=== PATIENT | female | born 1935 | race Caucasian/White ===

== ENCOUNTER 2023-10-05 07:01 | Emergency (ER) | payer OTHER, SELFPAY ==
[2023-10-05 07:04] VITALS: BP 135/93
[2023-10-05 07:07] VITALS: BMI 24.6
[2023-10-05 07:08] VITALS: BP 135/93
--- NOTE | 2023-10-05 07:31 | ED.GENMED ---
History of Present Illness
General
Chief Complaint: Fall
Source: ambulance crew
Exam Limitations: dementia
Time Seen by Provider: 10/05/23 07:10
Nursing documentation reviewed up to this point in time: agreed with
Travel History
Have you had any contact with someone who has COVID-19?: Unable to Answer
Do you have any symptoms of coronavirus? Fever > 100 degrees, chills, cough, shortness of breath, sore throat, loss of taste or smell, muscle aches, or headache?: Unable to Answer
History of Present Illness
History of Present Illness:
88 yr old female brought by EMS. Pt is from [facility] on Hospice, found under the bed by staff.
Son, Mp Jon reports via the phone that pt is on Hospice and Arnav moe was supposed to call Hospice first. Son reports she has dementia/dysphagia. Hospice is with pt 5 d a week (home health aide. )nurse visits one week. Son does not
want any evaluation or testing and request that patient be sent back to facility.
Review of Systems
Review of Systems
Unable to obtain full review of systems at this time due to: dementia
Other source history: family
All Other Systems: ROS reviewed and negative except as documented in HPI and ROS
Constitutional: Denies fever
Respiratory: Reports no symptoms
Cardiac: Reports no symptoms
ABD/GI: Reports no symptoms
Musculoskeletal: Reports no symptoms
Skin: Reports no symptoms
Neurological: Reports no symptoms
Psychiatric: Reports no symptoms
Phy Exam
General Physical Exam
General Presentation: no apparent distress
General age: appears stated age
General Skin: warm and dry
General Habitus: elderly
General Mental: alert
General Hydration: dry mucous membranes
Cardiovascular Exam
Cardiovascular Exam: regular rate/rhythm, no murmur and normal peripheral pulses
Pulmonary Exam
Pulmonary Exam: lungs clear and no respiratory distress
Neurological Exam
Neurological Exam: other (pt sleeping will open eyes when her name is called, confused does not follow commands )
Musculoskeletal Exam
Musculoskeletal Exam: full ROM
Skin Exam
Skin Exam: normal color and warm/dry
Psychiatric Exam
Psychiatric Exam: normal mood/affect
Course
Orders/Labs/Results
Orders:
Orders
10/05/23 07:27
Complete Blood Count/With Diff Urgent
Comprehensive Metabolic Panel Urgent
Urinalysis Urgent
Date Specimen was Collected: 10/05/23
Time Specimen was Collected: :
Urine Microscopic Urgent
Date Specimen was Collected: 10/05/23
Time Specimen was Collected: :
Abnormal Lab Results
10/05/23
07:27
Absolute Neuts (auto) 8.4 H 10^3/uL
(1.4-6.5)
Absolute Lymphs (auto) 0.5 L 10^3/uL
(1.2-3.4)
Neutrophils % 87.1 H %
(42.2-75.2)
Lymphocytes % 5.6 L %
(20.5-51.1)
BUN 24 H mg/dl
(7-17)
Glucose 116 H mg/dl
(70-99)
Ur Leukocyte Esterase 1+ A
(Negative)
Urine WBC 30-40 A /HPF
(0-5)
Urine Bacteria Few A
(Negative)
10/05/23 07:27
10/05/23 07:27
Vital Signs
Initial and Last Documented VS:
Initial Vital Signs
BP
135/93
10/05/23 07:04
Last Documented Vital Signs
Pulse Resp BP Pulse Ox
74 18 163/64 95
10/05/23 10:00 10/05/23 10:00 10/05/23 10:00 10/05/23 10:00
MDM/Problems Addressed
MDM/Problems Addressed:
Patient is a 80-year-old female on hospice from [facility] who was sent for evaluation after patient was found on the floor. Family however does not wish to have any evaluation as she is on hospice and were unhappy that patient was sent here. No
labs were canceled however lab did run studies after they were canceled. Nothing further to do patient was sent back to [facility]. Pt sleeping arousable in no distress .
*Pulse Oximetry
Patient hypoxic: no
*Critical Care Note
Total Time (30-74mins, 75-104mins- exclusive of procedures): Not Applicable
ED Attending Note
-
Portions of this chart may have been created with voice recognition software.� Occasional wrong word or��sound alike� substitutions may have occurred due to the inherent limitations of voice recognition software.
Discharge Plan
Departure
Patient Disposition: Home (Routine Discharge)
Date of Disposition: 10/05/23
Time of Disposition: 08:20
Patient with high blood pressure during this ER visit?: Yes
Condition: Fair
Covid-19: Not Applicable
Discharge Problem:
Fall
Prescriptions:
No Action
lisinopril 40 mg Tablet
40 mg PO DAILY
nebivolol 2.5 mg tablet
2.5 mg PO DAILY
fluoxetine 20 mg Capsule
20 mg PO DAILY
risperidone [Risperdal] 0.5 mg Tablet
0.5 mg PO HS
Referrals:
Mayra Coley DO [Family Provider] -
Activity Restrictions/Additional Instructions:
Patient was sent to the ER today for evaluation of fall. Family was notified and does not want any evaluation/treatment
Interventions
Interventions:
*Risk Screen - Suicide Last Done: 10/05/23 07:11
*General Assessment Last Done: 10/05/23 07:08
*Neglect/Abuse Screening Last Done: 10/05/23 07:11
*ED COVID-19 Vaccine History Last Done: 10/05/23 07:08
*Nursing Disposition Last Done: 10/05/23 10:00
ED- Neurological Assessment Last Done: 10/05/23 07:14
ED-Skin Assessment Last Done: 10/05/23 07:14
Discharge Date and Time
Discharge Date/Time: 10/05/23 10:35
[2023-10-05 07:45] LABS: % Basophils 0.5 % (0-2); % Eosinophils 0.2 % (0-6); % Immature Granulocytes 0.3 % (0-0.5); % Lymphocytes 5.6 % (20.5-51.1); % Monocytes 6.3 % (1.7-9.3); % Neutrophils 87.1 % (42.2-75.2); Absolute Basophils 0.1 10^3/uL (0-0.2); Absolute Lymphocytes 0.5 10^3/uL (1.2-3.4); Absolute Monocytes 0.6 10^3/uL (0.1-0.6); Absolute Neutrophils 8.4 10^3/uL (1.4-6.5); Hematocrit 38.9 % (37.0-47.0); Hemoglobin 13.2 g/dL (12.0-16.0); Mean Corp Hgb Conc. 33.9 g/dL (33.0-37.0); Mean Corpuscular Hgb 30.8 pg (27.0-31.0); Mean Corpuscular Volume 90.7 fL (81.0-99.0); Mean Platelet Volume 9.7 fL (7.4-10.4); Nucleated Red Blood Cells % 0 %; Platelet Count 247 10^3/uL (130-400); Red Blood Cell Count 4.29 10^6/uL (4.20-5.40); Red Cell Dist. Width 13.3 % (11.5-14.5); White Blood Cell Count 9.6 10^3/uL (4.8-10.8)
[2023-10-05 07:49] LABS: Urine Albumin Trace (Neg - Trace); Urine Bilirubin Negative (Negative); Urine Color Yellow; Urine Glucose Negative (Negative); Urine Ketone Negative (Negative); Urine Leukocyte 1+ (Negative); Urine Nitrite Negative (Negative); Urine Occult Blood Negative (Negative); Urine Specific Gravity 1.015 (<1.030); Urine Urobilinogen Negative (Neg - 1+)
[2023-10-05 07:50] LABS: Urine Character Slightly Cloudy (Clear)
[2023-10-05 07:56] LABS: ALT (SGPT) 15 U/L (0-35); AST (SGOT) 29 U/L (14-36); Albumin 4.1 g/dl (3.5-5.0); Alkaline Phosphatase 70 U/L (38-126); Blood Urea Nitrogen 24 mg/dl (7-17); Calcium 9.3 mg/dl (8.4-10.2); Carbon Dioxide 29 mmol/L (22-30); Chloride 106 mmol/L (98-107); Estimated Creatinine Clearance 44 ml/min; Glucose 116 mg/dl (70-99); Potassium 4.6 mmol/L (3.5-5.1); Sodium 139 mmol/L (135-145); Total Bilirubin 0.7 mg/dl (0.2-1.3); eGFR > 60.00
[2023-10-05 08:00] VITALS: BP 151/61
[2023-10-05 08:09] LABS: Urine Amorphous Seen; Urine Mucus Few; Urine Red Blood Cell 0-2 /HPF (0-2)
[2023-10-05 08:11] LABS: Urine Bacteria Few (Negative); Urine White Cell 30-40 /HPF (0-5)
[2023-10-05 09:00] VITALS: BP 149/64
[2023-10-05 10:00] VITALS: BP 163/64
== END 2023-10-05 10:35 | disposition home or self-care (01) ==
LOC: EMR 07:01
PROVIDERS: Nurse Practitioner; EMERGENCY PHYSICIAN Emergency Medicine; FAMILY PHYSICIAN Student in an Organized Health Care Education/Training Program
DX: Z04.3 Encounter for examination and observation following other accident (principal); W19.XXXA Unspecified fall, initial encounter; F03.90 Unspecified dementia, unspecified severity, without behavioral disturbance, psychotic disturbance, mood disturbance, and anxiety
CPT/HCPCS: 99283; 80053; 81003; 81015; 85025

== ENCOUNTER 2024-06-15 01:57 | Emergency (ER) | payer OTHER, SELFPAY ==
[2024-06-15 02:19] VITALS: BP 179/92; BP 185/69
[2024-06-15 02:27] VITALS: BMI 37.4
--- NOTE | 2024-06-15 02:27 | ED.GENMED ---
History of Present Illness
<Suzette Wahl [facility] - Last Filed: 06/16/24 06:22>
General
Chief Complaint: Fall
Source: patient
Exam Limitations: dementia and other (BL hearing loss )
Time Seen by Provider: 06/15/24 02:08
Nursing documentation reviewed up to this point in time: agreed with
History of Present Illness
History of Present Illness:
Unable to obtain hx due to pt's clinical condition.
Phy Exam
<Suzette Wahl [facility] - Last Filed: 06/16/24 06:22>
General Physical Exam
General Presentation: no apparent distress
General age: appears stated age
General Habitus: frail
General Chronic Disability: demented
ENT Exam
Additional ENT: small (<2 cm) laceration on L forehead
Cardiovascular Exam
Cardiovascular Exam: regular rate/rhythm, no edema, no gallop and no murmur
Pulmonary Exam
Pulmonary Exam: lungs clear, no respiratory distress, no rales, no crackles and no wheezing
Neurological Exam
Neurological Exam: alert and speech normal
Course
<[facility] - Last Filed: 06/16/24 06:22>
Orders/Labs/Results
Orders:
Orders
06/15/24 02:23
CT Cervical Spine W/o Iv Contr Urgent
Comment:
Reason For Exam: fall
CT Head W/o Iv Contrast Urgent
Comment:
Reason For Exam: fall
06/15/24 03:28
CBC/With Diff [Complete Blood Count/With Diff] Urgent
06/15/24 04:15
Comprehensive Metabolic Panel Urgent
Comment: REDRAW
Abnormal Lab Results
06/15/24 06/15/24
03:28 04:15
WBC 11.3 H 10^3/uL
(4.8-10.8)
RBC 4.17 L 10^6/uL
(4.20-5.40)
Absolute Neuts (auto) 8.1 H 10^3/uL
(1.4-6.5)
Absolute Monos (auto) 0.8 H 10^3/uL
(0.1-0.6)
Lymphocytes % 19.2 L %
(20.5-51.1)
Chloride 109 H mmol/L
(98-107)
BUN 28 H mg/dl
(7-17)
Total Protein 6.1 L g/dl
(6.3-8.2)
06/15/24 03:28
06/15/24 04:15
Vital Signs
Initial and Last Documented VS:
Initial Vital Signs
Pulse Ox
98
06/15/24 02:14
Last Documented Vital Signs
Temp Pulse Resp BP Pulse Ox
98.0 F 58 17 192/79 97
06/15/24 02:19 06/15/24 02:19 06/15/24 02:19 06/15/24 03:27 06/15/24 03:30
Chrislt;Bora Hernandez, DO - Last Filed: 06/15/24 05:27>
Orders/Labs/Results
Orders:
Orders
06/15/24 02:23
CT Cervical Spine W/o Iv Contr Urgent
Comment:
Reason For Exam: fall
CT Head W/o Iv Contrast Urgent
Comment:
Reason For Exam: fall
06/15/24 03:28
CBC/With Diff [Complete Blood Count/With Diff] Urgent
06/15/24 04:15
Comprehensive Metabolic Panel Urgent
Comment: REDRAW
Abnormal Lab Results
10/18/24 10/18/24
03:28 04:15
WBC 11.3 H 10^3/uL
(4.8-10.8)
RBC 4.17 L 10^6/uL
(4.20-5.40)
Absolute Neuts (auto) 8.1 H 10^3/uL
(1.4-6.5)
Absolute Monos (auto) 0.8 H 10^3/uL
(0.1-0.6)
Lymphocytes % 19.2 L %
(20.5-51.1)
Chloride 109 H mmol/L
(98-107)
BUN 28 H mg/dl
(7-17)
Total Protein 6.1 L g/dl
(6.3-8.2)
06/15/24 03:28
06/15/24 04:15
Vital Signs
Initial and Last Documented VS:
Initial Vital Signs
Pulse Ox
98
06/15/24 02:14
Last Documented Vital Signs
Temp Pulse Resp BP Pulse Ox
98.0 F 58 17 192/79 97
06/15/24 02:19 06/15/24 02:19 06/15/24 02:19 06/15/24 03:27 06/15/24 03:30
<BUCK Chacon - Last Filed: 06/16/24 06:22>
MDM/Problems Addressed
Differential Diagnosis Includes:
superficial skin laceration, concussion, subdural hematoma
<BUCK Chacon - Last Filed: 06/16/24 06:22>
*Critical Care Note
Total Time (30-74mins, 75-104mins- exclusive of procedures): Not Applicable
ED Attending Note
<BUCK Chacon - Last Filed: 06/16/24 06:22>
-
Portions of this chart may have been created with voice recognition software.� Occasional wrong word or��sound alike� substitutions may have occurred due to the inherent limitations of voice recognition software.
<Bora Hernandez, DO - Last Filed: 06/15/24 05:27>
ED Attending Note
Patient seen and examined by attending physician: Yes
I performed the substantive portion of visit, reviewed & personally made and approve the management plan that is documented in note by myself or AAKASH.: Yes
ED Attending Note:
This a pleasantly demented 88-year-old female from [facility] presents to the emergency department after unwitnessed fall. Patient has no complaints per EMS. Per nursing staff to EMS, patient is at baseline. Patient was actually found sitting in
the doorway of her room. There is a small abrasion on the left side of her head. Patient was seen in conjunction with the PA student. I have reviewed and agree with the history and treatment plan presented. On my independent physical exam,
patient is awake, responsive to verbal stimuli. Apparently at baseline. Heart is regular rate rhythm. Lungs are clear to auscultation bilaterally without wheezes rales or rhonchi present. Hips are stable without tenderness to palpation. Moves
all 4 extremities. Small very superficial abrasion approximate 1 cm x 1 cm left temporal region of her forehead. Not tender to palpation.
Discharge Plan
Departure
Patient Disposition: Half-Way/SNF
Date of Disposition: 06/15/24
Time of Disposition: 05:26
Discharge Problem:
Fall, Abrasion, Alzheimer's dementia
Instructions: Head Injury in Adults (DC), Preventing falls in adults, Skin Abrasions (DC), BLOOD PRESSURE
Prescriptions:
No Action
lisinopril 40 mg Tablet
40 mg PO DAILY
nebivolol 2.5 mg tablet
2.5 mg PO DAILY
fluoxetine 20 mg Capsule
20 mg PO DAILY
risperidone [Risperdal] 0.5 mg Tablet
0.5 mg PO HS
Referrals:
Reji Salazar MD [Family Provider] -
Activity Restrictions/Additional Instructions:
It was a pleasure meeting you and taking part in your care. We hope for your continued healing and wellness.
Please read discharge instructions in their entirety. However, they are for general education and may not describe your exact diagnosis at discharge. Information on your ER visit and medical conditions were discussed with you along with appropriate
follow up information...
If indicated, please take your medications as instructed and indicated on discharge paperwork.
Please schedule a follow up appointment as directed. Call to schedule an appointment
Please return to the emergency department with ANY change in, persisting, or worsening of symptoms. If any of your symptoms do not improve, or persist, or become more severe within 6-12 hours, please return to the emergency department for further
care.
Please return to the emergency department if you develop a headache, neck pain/stiffness, fever greater than 100.4F, chest pain, shortness of breath, persistent nausea, vomiting, slurred speech, difficulty walking, numbness/tingling, weakness, signs
of infection or any other symptoms that are worrisome to you.
If you have any questions or concerns please do not hesitate to call the Hospital at or E-mail me directly at [email or web address]
Interventions
Interventions:
*Risk Screen - Suicide Last Done: 06/15/24 02:19
*General Assessment Last Done: 06/15/24 02:19
*Neglect/Abuse Screening Last Done: 06/15/24 02:19
ED- Fall Risk Assessment Last Done: 06/15/24 02:27
*ED COVID-19 Vaccine History Last Done: 06/15/24 02:27
*Nursing Disposition Last Done: 06/15/24 06:35
ED-Musculoskeletal Assessment Last Done: 06/15/24 02:27
ED- Neurological Assessment Last Done: 06/15/24 02:27
ED-Skin Assessment Last Done: 06/15/24 02:27
Discharge Date and Time
Discharge Date/Time: 06/15/24 06:35
Print Language: BERMUDIAN
[2024-06-15 03:27] VITALS: BP 192/79
[2024-06-15 04:03] LABS: % Basophils 0.5 % (0-2); % Immature Granulocytes 0.4 % (0-0.5); % Lymphocytes 19.2 % (20.5-51.1); % Monocytes 6.8 % (1.7-9.3); % Neutrophils 72.1 % (42.2-75.2); Absolute Basophils 0.1 10^3/uL (0-0.2); Absolute Eosinophils 0.1 10^3/uL (0-0.7); Absolute Lymphocytes 2.2 10^3/uL (1.2-3.4); Absolute Monocytes 0.8 10^3/uL (0.1-0.6); Absolute Neutrophils 8.1 10^3/uL (1.4-6.5); Hemoglobin 12.4 g/dL (12.0-16.0); Mean Corp Hgb Conc. 33.5 g/dL (33.0-37.0); Mean Corpuscular Hgb 29.7 pg (27.0-31.0); Mean Corpuscular Volume 88.7 fL (81.0-99.0); Mean Platelet Volume 9.7 fL (7.4-10.4); Nucleated Red Blood Cells % 0 %; Platelet Count 246 10^3/uL (130-400); Red Blood Cell Count 4.17 10^6/uL (4.20-5.40); Red Cell Dist. Width 13.7 % (11.5-14.5); White Blood Cell Count 11.3 10^3/uL (4.8-10.8)
[2024-06-15 04:58] LABS: ALT (SGPT) 14 U/L (0-35); AST (SGOT) 18 U/L (14-36); Albumin 3.5 g/dl (3.5-5.0); Alkaline Phosphatase 54 U/L (38-126); Blood Urea Nitrogen 28 mg/dl (7-17); Calcium 8.8 mg/dl (8.4-10.2); Carbon Dioxide 26 mmol/L (22-30); Chloride 109 mmol/L (98-107); Estimated Creatinine Clearance 30 ml/min; Glucose 96 mg/dl (70-99); Potassium 3.7 mmol/L (3.5-5.1); Sodium 145 mmol/L (135-145); Total Bilirubin 0.4 mg/dl (0.2-1.3); Total Protein 6.1 g/dl (6.3-8.2); eGFR > 60.00
== END 2024-06-15 06:35 ==
LOC: EMR 01:57
PROVIDERS: EMERGENCY PHYSICIAN Student in an Organized Health Care Education/Training Program; FAMILY PHYSICIAN Family Medicine
DX: S01.81XA Laceration without foreign body of other part of head, initial encounter (principal); W19.XXXA Unspecified fall, initial encounter; F02.80 Dementia in other diseases classified elsewhere, unspecified severity, without behavioral disturbance, psychotic disturbance, mood disturbance, and anxiety; G30.9 Alzheimer's disease, unspecified
CPT/HCPCS: 99284; 70450; 72125; 80053; 85025

== ENCOUNTER 2024-06-26 18:35 | Inpatient (IN) | payer OTHER, SELFPAY ==
[2024-06-26 12:36] VITALS: BP 162/60
--- NOTE | 2024-06-26 12:41 | ED.MUSCINJ ---
HPI-Injury
General
Chief Complaint: Fall
Source: patient and ambulance crew
Exam Limitations: dementia
Time Seen by Provider: 06/26/24 12:35
Nursing documentation reviewed up to this point in time: agreed with
History of Present Illness-Injury
Initial Injury comments:
88-year-old female from [facility] Hx HTN, Altzheimer's dementia, HLD, Hospice Care, was found sitting in her room on the floor she is demented and is a poor historian.
Son Mp called and said patient was on hospice from February 2000 23 to 2 weeks ago as she no longer met the criteria, and she has fallen twice since then. She had been eating and drinking well, ambulating he states 'she is a tough old bird.'
He confirms that she is DNR.
He states the staff was concerned today not because of the fall but because when they helped her up she could not walk which is unusual.
Past History
Past History
ED Past Medical History: HTN, Hypercholesterolemia and Psychiatric (dementia)
ED Past Surgical History: Gynecological
Social History
Tobacco: Non-smoker
Alcohol: None
Personal:
Review of Systems
Review of Systems
Allergies reviewed?: Yes
Unable to obtain full review of systems at this time due to: dementia
All Other Systems: ROS reviewed and negative except as documented in HPI and ROS
Constitutional: Denies fever
ABD/GI: Denies vomiting or diarrhea
Musculoskeletal: Reports other (pain left hip with exam)
Skin: Reports no symptoms
Phy Exam
Physical Exam
Physical Exam:
GENERAL: No acute distress. Alert, disoriented.
CONSTITUTIONAL: Afebrile.
EYES: PERRL, conjunctivae normal
Neck: Supple
ENMT: moist mucus membranes, [place]
RESPIRATORY: Regular respirations, nonlabored, lungs clear.
CARDIOVASCULAR: Regular rate and rhythm, no murmurs, no rubs.
GI: Soft, nontender, normal BS
MUSCULOSKELETAL: Moves with ease. Well perfused. No edema.
SKIN: Warm, dry, pale
PSYCH: Normal mood and affect. Well kept, dementia
NEUROLOGIC: Awake, alert and demented. No focal neurological deficits
Injury Course
Orders/Labs/Results
Orders:
Orders
06/26/24 12:46
Hip, Left 2-3 Views [CR Hip - LT w/wo Pel 2-3 Vw*] Urgent
Comment:
Reason For Exam: pain after fall
Include a pelvis x-ray?: Yes
06/26/24 12:47
Straight cath- Treatment ONCE
06/26/24 13:11
Complete Blood Count/With Diff Urgent
Comprehensive Metabolic Panel Urgent
Urinalysis Reflex To Culture Urgent
Date Specimen was Collected: 06/26/24
Time Specimen was Collected: 12:50
Urine Microscopic Reflex Cult Urgent
Urine Culture Urgent
BEULAH Source: U
Specimen Description:
Date Specimen was Collected: 06/26/24
Time Specimen was Collected: 12:50
06/26/24 14:10
Acetaminophen [Tylenol] 1,000 mg PO NOW STA
06/26/24 14:35
Fosfomycin [Monurol] 3 gm PO ONCE ONE
06/26/24 14:36
Lorazepam [Ativan] 0.5 mg IV NOW STA
06/26/24 16:16
Case Management Consult ONCE
Case Management Consult: Discharge Planning
Requested By:: PHYSICIAN
Hosp[phone]
Comment: Pt has nondisplaced fx left hip from fall. Son does not want surgery. He wants her back on
Hospice. She was on Hospice from 02/2023 until she no longer qualified and was DC'd 2 weeks ago
and has had 2 falls since. She is severely demented and even found standing in hallway here
on her fractured hip! Son wants her back in NH on Hospice. She will need Ativan and pain
management. Thanks
06/26/24 17:08
Case Management Consult ONCE
Case Management Consult: Discharge Planning
Comment: Hospice evaluate and Treat
06/26/24 17:46
Risperidone Disintegrating [Risperdal M-Tab (Orally Disintegrating)] 0.5 mg PO NOW STA
06/26/24 17:47
Admit/Transfer Patient As Directed
Co-Sign Provider:
Level of Care: Inpatient admission
Assign to:: Medical/Surgical
Physician / Group: Colin Hair
Diagnosis: UTI
Reason for Hospitalization: UTI
Expected length of stay greater than two midnights?: Yes
ELOS- Estimated Length of Stay in days: 3
I certify the patient meets the requirements for IP care: Yes
PRN Pain Medication Management As Directed
May give lesser potent ordered pain med per pt: Yes
preference::
Protocol:: Medication orders for pain may be administered in a
manner that supports deferring to patient preference
when the pt is:
- Requesting an ordered lesser potent pain medication.
Least to most potent pain medications are defined
as: acetaminophen < NSAID < tramadol < opioids
(morphine, oxycodone, hydromorphone).
- Requesting a lesser dose of the same medication IF
ORDERED.
- Requesting a less intrusive route of administration
if both routes are prescribed by the provider (PO <
IV).
06/26/24 17:48
Code Status As Directed
Resuscitation Status: Do not resuscitate
Based on pt advanced directive or healthcare POA form: Yes
DNR Bracelet Application ONCE
Abnormal Lab Results
06/26/24
13:11
RBC 3.85 L 10^6/uL
(4.20-5.40)
Hgb 11.4 L g/dL
(12.0-16.0)
Hct 35.1 L %
(37.0-47.0)
MCHC 32.5 L g/dL
(33.0-37.0)
Immature Gran % 0.6 H %
(0-0.5)
BUN 25 H mg/dl
(7-17)
Urine Nitrite (Reflex) Positive A
(Negative)
Leukocyte Esterase Rfl 2+ A
(Negative)
Urine WBC (Reflex) 70-80 A /HPF
(0-5)
Urine Bacteria (Reflex) Many A
(Negative)
06/26/24 13:11
06/26/24 13:11
MDM/Problems Addressed
MDM/Problems Addressed:
88-year-old female from [facility] Hx HTN, Altzheimer's dementia, HLD, Hospice Care, was found sitting in her room on the floor she is demented and is a poor historian.
Son Mp called and said patient was on hospice from February 2000 23 to 2 weeks ago as she no longer met the criteria, and she has fallen twice since then. She had been eating and drinking well, ambulating he states 'she is a tough old bird.'
He confirms that she is DNR. He is fine with her having blood work, U/A and xrays.
He states the staff was concerned today not because of the fall but because when they helped her up she could not walk which is unusual.
Pt persistently winces and says 'ouch' and 'hurts' with manipulation of left hip
1:30 p.m.
CBC with no clinically significant abnormality
CMP with no clinically significant abnormality
X-ray left hip and pelvis radiology report read: IMPRESSION:
Findings suspicious for fracture, neck, proximal left femur.
2:30 p.m.
Pt agitated constantly crying out, unable to calm her, given Tylenol for pain. Trying to get OOB then saying 'I'm in pain.' She will not follow command to stay in bed.
Ativan ordered.
Son informed of fracture. He does NOT want surgery. He requests pt be put back on Hospice. He is ok with treating the UTI. He is contacting Marsha at [facility] who knows pt and will get back to me
4:20 p.m.
Son unable to contact anyone in Hospice
Case management consulted.
5:10 p.m.
Spoke with Mark Jaquez ([phone] ) head liaison from [facility]. He states the patient cannot go back to [facility] until he makes appropriate arrangements and that will not be until the morning.
Kourtney from case management is involved and will follow
Son updated
Hospitalist notified of admission.
*Critical Care Note
Total Time (30-74mins, 75-104mins- exclusive of procedures): Not Applicable
ED Attending Note
-
Portions of this chart may have been created with voice recognition software.� Occasional wrong word or��sound alike� substitutions may have occurred due to the inherent limitations of voice recognition software.
Discharge Plan
Departure
Patient Disposition: Admit
Date of Disposition: 06/26/24
Time of Disposition: 17:09
Admit to: Med/Surg
Presentation/result/management discussed w/ accepting MD/DO: Hospitalist
Condition: Fair
Discharge Problem:
Alzheimer's dementia, Fracture of left hip
Prescriptions:
No Action
sennosides [senna] 8.6 mg Tablet
17.2 mg PO HS
acetaminophen 325 mg Tablet
650 mg PO Q4HPRN PRN (Reason: moderate pain)
acetaminophen 325 mg Tablet
650 mg PO Q6HPRN PRN (Reason: mild pain)
polyethylene glycol 3350 [Miralax] 17 gram Powder In Packet
17 g PO DAILYPRN PRN (Reason: constipation)
amlodipine 2.5 mg Tablet
2.5 mg PO DAILY
melatonin 3 mg Tablet
3 mg PO HS
lorazepam 0.5 mg Tablet
0.5 mg PO BIDPRN PRN (Reason: anxiety)
magnesium hydroxide [Milk of Magnesia] 400 mg/5 mL Suspension
30 ml PO HSPRN PRN (Reason: if no bm x 3 days)
methimazole 5 mg Tablet
5 mg PO DAILY@0630
nystatin [Nystop] 100,000 unit/gram Powder
1 applic TOPICAL BID@0900,1700
Patient Comments:
apply to bilateral breasts
paroxetine HCl 40 mg Tablet
40 mg PO DAILY
ibandronate 150 mg Tablet
150 mg PO QMONTH
cholecalciferol (vitamin D3) 25 mcg (1,000 unit) Tablet
25 mcg PO DAILY
potassium chloride 20 mEq Tablet Extended Release
20 meq PO DAILY
Referrals:
Reji Salazar MD [Family Provider] -
Interventions
Interventions:
*Risk Screen - Suicide Last Done: 06/26/24 12:36
*General Assessment Last Done: 06/26/24 12:36
*Neglect/Abuse Screening Last Done: 06/26/24 12:36
ED-Musculoskeletal Assessment Last Done: 06/26/24 13:23
ED- Neurological Assessment Last Done: 06/26/24 13:23
ED-Skin Assessment Last Done: 06/26/24 13:23
Discharge Date and Time
Print Language: FRENCH
[2024-06-26 13:24] LABS: % Basophils 0.9 % (0-2); % Eosinophils 1.5 % (0-6); % Immature Granulocytes 0.6 % (0-0.5); % Lymphocytes 28.9 % (20.5-51.1); % Monocytes 8.5 % (1.7-9.3); % Neutrophils 59.6 % (42.2-75.2); Absolute Basophils 0.1 10^3/uL (0-0.2); Absolute Eosinophils 0.1 10^3/uL (0-0.7); Absolute Lymphocytes 1.9 10^3/uL (1.2-3.4); Absolute Monocytes 0.6 10^3/uL (0.1-0.6); Absolute Neutrophils 3.9 10^3/uL (1.4-6.5); Hematocrit 35.1 % (37.0-47.0); Hemoglobin 11.4 g/dL (12.0-16.0); Mean Corp Hgb Conc. 32.5 g/dL (33.0-37.0); Mean Corpuscular Hgb 29.6 pg (27.0-31.0); Mean Corpuscular Volume 91.2 fL (81.0-99.0); Mean Platelet Volume 9.8 fL (7.4-10.4); Nucleated Red Blood Cells % 0 %; Platelet Count 233 10^3/uL (130-400); Red Blood Cell Count 3.85 10^6/uL (4.20-5.40); Red Cell Dist. Width 13.6 % (11.5-14.5); White Blood Cell Count 6.6 10^3/uL (4.8-10.8)
[2024-06-26 13:34] LABS: Urine Albumin Trace (Neg - Trace); Urine Bilirubin Negative (Negative); Urine Character Slightly Cloudy (Clear); Urine Color Yellow; Urine Glucose Negative (Negative); Urine Ketone Negative (Negative); Urine Leukocyte 2+ (Negative); Urine Nitrite Positive (Negative); Urine Occult Blood Negative (Negative); Urine Urobilinogen Negative (Neg - 1+)
[2024-06-26 13:38] LABS: ALT (SGPT) 18 U/L (0-35); AST (SGOT) 23 U/L (14-36); Albumin 3.9 g/dl (3.5-5.0); Alkaline Phosphatase 55 U/L (38-126); Blood Urea Nitrogen 25 mg/dl (7-17); Calcium 9.2 mg/dl (8.4-10.2); Carbon Dioxide 30 mmol/L (22-30); Chloride 103 mmol/L (98-107); Glucose 93 mg/dl (70-99); Potassium 4.5 mmol/L (3.5-5.1); Sodium 144 mmol/L (135-145); Total Bilirubin 0.2 mg/dl (0.2-1.3); Total Protein 6.5 g/dl (6.3-8.2); eGFR > 60.00
[2024-06-26 14:08] LABS: Urine Bacteria Many (Negative); Urine Red Blood Cell 0-2 /HPF (0-2); Urine White Cell 70-80 /HPF (0-5)
[2024-06-26] MEDS: TYLENOL 1000 MG PO (14:13)
[2024-06-26] MEDS: ATIVAN 0.5 MG IV ×2 (14:40→21:13)
[2024-06-26] MEDS: MONUROL 3 GM PO (14:40)
[2024-06-26 15:06] VITALS: BP 148/130
--- NOTE | 2024-06-26 16:39 | CM ---
Addendum entered by Kourtney Orr RN 06/26/24 17:20:
BRIAN spoke with ED [employer]VEYOR LOADER who stated that Asael from [facility] spoke with her. He stated that they are unable to sign her on to hospice tonight and she will have to be evaluated tomorrow for hospice placement.
BRIAN spoke with KJ Copeland at [facility] and she stated she is concerned that patient will attempt to get up from the bed given her history of dementia and previous attempts. CM will speak with [facility] and [facility] hospice tomorrow to coordinate
discharge.
Original Note:
BRIAN spoke with Dinorah at [facility]. She is concerned that patient will be too agitated for them to provide care for her. Nursing will update this CM if they can accept back.
[2024-06-26 16:46] VITALS: BP 146/69
--- NOTE | 2024-06-26 17:23 | HPS.HSE ---
Family Physician
-
Family Physician: Reji Salazar
Chief Complaint
-
Fall
History of Present Illness
Patient is a 8-year-old female with past medical history significant for HTN, and dementia. Patient presented to [place] ED following a suspected fall at [facility] where staff reported patient was found sitting on floor and when they got her up
and she was unable to walk like normal. Patient AAOx1, not interactive with assessment. Patient son reported to ED staff that patient was recently discharged from hospice services for not meeting criteria, and wishes for a hospice consult, he is ok
with antibiotics to treat UTI but does not want surgical intervention for fracture.
Medical History
Past Medical History
Past Medical History: Reports Other
Additional Past Medical History:
Hypertension
Alzheimer's
Dementia
Past Surgical History: Reports None
Social History
Unable to obtain full social history at this time due to: Dementia
Family History
Family History: Not pertinent
Allergies / Home Medications
Allergies reflects when Allergies were last updated in [employer].
Home Medications with original date entered in [employer]
Allergy/Medication List:
Allergies
Allergy/AdvReac Type Severity Reaction Status Date / Time
No Known Allergies Allergy Verified 06/26/24 12:35
Home Medications
acetaminophen 325 mg tablet 650 mg PO Q4HPRN PRN moderate pain 06/26/24
acetaminophen 325 mg tablet 650 mg PO Q6HPRN PRN mild pain 06/26/24
amlodipine 2.5 mg tablet 2.5 mg PO DAILY 06/26/24
cholecalciferol (vitamin D3) 25 mcg (1,000 unit) tablet 25 mcg PO DAILY 06/26/24
ibandronate 150 mg tablet 150 mg PO QMONTH 06/26/24
lorazepam 0.5 mg tablet 0.5 mg PO BIDPRN PRN anxiety 06/26/24
magnesium hydroxide 400 mg/5 mL oral suspension (Milk of Magnesia) 30 ml PO HSPRN PRN if no bm x 3 days 06/26/24
melatonin 3 mg tablet 3 mg PO HS 06/26/24
methimazole 5 mg tablet 5 mg PO DAILY@0630 06/26/24
nystatin 100,000 unit/gram topical powder (Nystop) 1 applic topical BID@0900,1700 06/26/24
paroxetine HCl 40 mg tablet 40 mg PO DAILY 06/26/24
polyethylene glycol 3350 17 gram oral powder packet (Miralax) 17 g PO DAILYPRN PRN constipation 06/26/24
potassium chloride 20 mEq tablet,extended release 20 meq PO DAILY 06/26/24
sennosides 8.6 mg tablet (senna) 17.2 mg PO HS 06/26/24
Review of Systems
-
Unable to obtain full review of systems at this time due to: Dementia
History Source: Patient
Physical Exam
Vital Signs
Vital Signs
Temp Pulse Resp BP Pulse Ox
97.8 F 68 18 146/69 91
06/26/24 12:36 06/26/24 16:46 06/26/24 16:46 06/26/24 16:46 06/26/24 16:46
Physical Exam
General: Well Developed, No Apparent Distress and Comfortable
HEENT: NormoCephalic, Moist mucous membranes, Atraumatic, [place] Conjunctivae, Nose Appears Normal and Ears Appear Normal
Respiratory: Clear and Non Labored Respirations; No Wheezes, Rales, Rhonchi or Crackles
Cardiac: S1/S2 and Regular Rhythm; No Murmur, Rub or Gallop
Breast: Deferred by me
GI: Soft, Non Tender, Non Distended and Normal Bowel Sounds; No Organomegaly
Rectal: Deferred by Provider
Genito-urinary: Deferred by me
Musculoskeletal: No Clubbing, No Cyanosis and No Edema
Skin: Warm, Dry and IV/Catheter Site; No Rash
Neuro: Awake, Nonfocal/grossly intact and Other (oriented to self only)
Hematologic/Lymphatic: No Lymphadenopathy
Psych: Calm
Laboratory Results
-
06/26/24 13:11
06/26/24 13:11
Laboratory Results
Total Bilirubin 0.2 mg/dl (0.2-1.3) 06/26/24 13:11
AST 23 U/L (14-36) 06/26/24 13:11
ALT 18 U/L (0-35) 06/26/24 13:11
Alkaline Phosphatase 55 U/L (38-126) 06/26/24 13:11
Data Reviewed
-
Lab Data: Labs Reviewed by me
Impression/Plan
-
IMPRESSION/PLAN:
#Abnormal UA suspect UTI
- UA suggestive of UTI, AOC DIRECTOR INTELLIGENCE OFFICER pending
- Admit to med/surg
- IV Ceftriaxone
- Consult case management for hospice
#Left hip fracture
#Ambulatory dysfunction
- pain management
- Consult case management for hospice
#Alzheimer's Disease/Dementia
- continue paroxetine
- SL risperidone PRN
#Hypertension
- continue amlodipine
DNR
DVT Px: SQ Lovenox
--- NOTE | 2024-06-26 17:40 | W.PN.UPDATE ---
Update Note
Progress Note Update
I could not get any information from the patient as HX dementia
Information gathered by chart review and speaking with the ER staff
This note serves as an addendum to the H&P by relations mgr AAKASH Cainjay GrahamGlenfield
HPI
88-year-old female from [facility] Hx HTN, Altzheimer's dementia, HLD, Hospice Care, was found sitting in her room on the floor she is demented and is a poor historian.
Son Mp called and said patient was on hospice from February 2000 23 to 2 weeks ago as she no longer met the criteria, and she has fallen twice since then. She had been eating and drinking well, ambulating he states 'she is a tough old bird.'
He confirms that she is DNR.
He states the staff was concerned today not because of the fall but because when they helped her up she could not walk which is unusual.
Reviewed VS: unremarkable
PE
Gen:
General: alert but not interactive
HEENT: Normo Cephalic and Anicteric
Respiratory: symmetric AE, CTA
Cardiac: S1/S2 and Regular Rhythm
GI: Soft
Neuro: confused
Hematologic/Lymphatic:
Psych: Calm s/p ativan
Data
nl WCC
Hgb 11.4
BUN 25
nl Cr, nl eGFR
Abn UA suggestive of significant pyuria nd UTI
Lt Hip XR: suspicious for Lt proximal NoF Fx .
Last hospitalist admission: DATE OF ADMISSION: 03/20/2023 - DATE OF DISCHARGE: 03/23/2023
DISCHARGE DIAGNOSES:
1. Acute hypoxic respiratory insufficiency.
2. Aspiration pneumonitis.
3. Severe dysphagia.
4. Alzheimer's dementia.
ASSESSMENT & PLAN
Abnormal UA suspect UTI
HX Morganella POS UCx resistant to cefazolin. Sensitive to CFTX nd LVQ
- f/u UCx
- IV CFTX for now
Fall complicated with proximal Lt NoF Fx
Son declined hip surgery
- Fx set protocol
- son opted for Hospice care
- CRM consult
Restlessness
HX Dementia
HX ambulating and eating and drinking well
HX agitation
Of note: on hospice from February 2000 - to 2 weeks ago as she no longer met the criteria, and she has fallen twice since then.
- Reconsult hospice care vs. candidate for pre hospice care
- continue Risperdal M PRN for agitation
- c/w /Prozac
Essential HTN
- continue JOSUÉ/BB
HLD
- statin
DVT px: Lovenox
Code: Full
IP MS
[2024-06-26] MEDS: RISPERDAL M-TAB (ORALLY DISINTEGRATING) 0.5 MG PO (18:02)
[2024-06-26 20:12] VITALS: BP 124/89
--- NOTE | 2024-06-26 20:15 | TRANSFER ---
pt arrived from ED via stretcher accompanied by ED staff. pt was a pullover from stretcher to bed. AAOx1, VSS stable. pt agitated upon arrival, attempted to reorient. pt resting in bed at present. plan of care ongoing.
[2024-06-26] MEDS: LOVENOX 40 MG SC (21:14)
[2024-06-26] MEDS: ROCEPHIN 1000 MG IV (21:16)
[2024-06-26] MEDS: STERILE WATER FOR INJECTION 10 ML IV (21:17)
[2024-06-26] MEDS: NSS (PRESERVATIVE FREE) 0.25 ML IV (21:19)
[2024-06-26 23:00] VITALS: BP 150/69
[2024-06-27] MEDS: TYLENOL 650 MG PO (00:43)
[2024-06-27 03:07] LABS: HIV Combo Negative (Negative)
[2024-06-27 03:38] LABS: Hepatitis B Surface Antigen Negative (Negative)
[2024-06-27 03:55] LABS: Hepatitis C Antibody Negative (Negative)
[2024-06-27] MEDS: TAPAZOLE PO (05:50)
[2024-06-27 06:00] VITALS: BMI 26.5
[2024-06-27 08:06] VITALS: BP 135/69
[2024-06-27 08:43] LABS: Hematocrit 36.9 % (37.0-47.0); Hemoglobin 12.5 g/dL (12.0-16.0); Mean Corp Hgb Conc. 33.9 g/dL (33.0-37.0); Mean Corpuscular Hgb 30.6 pg (27.0-31.0); Mean Corpuscular Volume 90.2 fL (81.0-99.0); Mean Platelet Volume 10.6 fL (7.4-10.4); Platelet Count 206 10^3/uL (130-400); Red Blood Cell Count 4.09 10^6/uL (4.20-5.40); Red Cell Dist. Width 13.3 % (11.5-14.5); White Blood Cell Count 9.4 10^3/uL (4.8-10.8)
[2024-06-27 09:07] LABS: Blood Urea Nitrogen 22 mg/dl (7-17); Calcium 9.1 mg/dl (8.4-10.2); Carbon Dioxide 23 mmol/L (22-30); Chloride 106 mmol/L (98-107); Estimated Creatinine Clearance 40 ml/min; Glucose 91 mg/dl (70-99); Potassium 3.9 mmol/L (3.5-5.1); Sodium 143 mmol/L (135-145); eGFR > 60.00
--- NOTE | 2024-06-27 09:10 | W.PN.HOSP.TC ---
Today's Communication/Plan
-
see A/P
Assessment / Plan
Assessment / Plan
HPI: 88-year-old female with past medical history of HTN, dementia; p/w suspected fall at [facility] where staff reported patient was found sitting on floor and when they got her up and she was unable to walk like normal.
Patient AAOx1, not interactive. Patient's son reported that patient was recently discharged from hospice services for not meeting criteria, and he wishes for a hospice consult. He is ok with antibiotics to treat UTI but does not want surgical
intervention for fracture.
A/P:
# Abnormal UA, possible UTI
f/u UCx
IV CFTX for now
# Fall with Left femur fracture
Son declined hip surgery, requesting Hospice care
Of note: pt was previously on hospice
# Dementia with agitation
cont SATELLITE INSTALLER Ativan PRN for agitation
c/w Prozac
# Essential HTN
continue JOSUÉ/BB
# HLD
statin
DVT px: Lovenox
Code: Full
DW RN
Called son several times, calls not answered
Anticipated Discharge: 24 - 48 hours
Subjective/Interval History
-
Date of Service: June 27, 2024
Objective Data
-
Labs:
Laboratory Results
06/27/24
07:39
WBC 9.4
Hgb 12.5
Hct 36.9 L
Plt Count 206
Sodium 143
Potassium 3.9
Chloride 106
Carbon Dioxide 23
BUN 22 H
Creatinine 0.7
Glucose 91
Calcium 9.1
Vital Signs:
Vital Signs
Temp Pulse Resp BP Pulse Ox
37.1 C 72 20 135/69 94
06/27/24 08:06 06/27/24 08:06 06/27/24 08:06 06/27/24 08:06 06/27/24 08:06
I&O
06/26/24 06/27/24 06/28/24
06:59 06:59 06:59
Output Total 900 / 900
Balance -900 / -900
Review of Systems
-
Unable to obtain full review of systems at this time due to: Dementia
Physical Exam
-
General: Well Developed, Well Nourished, No Apparent Distress, Comfortable and Conversant; Negative Respiratory Distress
HEENT: Normocephalic, Atraumatic, Nose Appears Normal and Ears Appear Normal; Negative Oxygen
Respiratory: Clear to Auscultation and Non Labored Respirations; Negative Accessory Resp Muscle Use
Cardiac: Regular Rhythm and S1/S2
GI: Soft, Nontender, Nondistended and Normal Bowel Sounds
Skin: Warm and Dry
Psych: Calm
Data Reviewed
-
Diagnostic Radiology: Report Reviewed by me
Labs: Labs Reviewed by me
[2024-06-27] MEDS: ATIVAN 0.5 MG PO (13:19)
[2024-06-27] MEDS: KCL PO (13:27)
[2024-06-27] MEDS: PAXIL PO (13:27)
[2024-06-27] MEDS: NORVASC PO (13:27)
--- NOTE | 2024-06-27 14:30 | PTOTSP ---
SPEECH THERAPY SWALLOW EVALUATION:
Pt exhibits clinical signs of oropharyngeal dysphagia, likely chronic related to dementia and acutely exacerbated by possible UTI and fall/femur fracture. Pt remains at high risk for aspiration and related complications given severe
confusion/lethargy. Pt with history of dysphagia; Prior VSE 02/2023 recommended Dysphagia Level 3 diet, [place]-thick liquids at that time. Pt was previously on hospice care, on Regular texture diet, thin liquids prior to admission per RN; However, pt
has since been d/c'd from hospice due to no longer meeting criteria. Chart review indicated son considering hospice at this time. Given GOC conversation is ongoing at this point, would recommend the following options: (1) safest recommendation would
be for NPO except for necessary medications crushed in puree, only when awake/alert, with ST to re-assess in 24 hours, vs. (2) Should family pursue comfort care/hospice and elect for oral diet while accepting risks for aspiration and related
complications, would recommend cautious oral diet of IDDSI Level 4 Puree and Mildly-thick liquids with 1:1 assist, only when pt awake/alert. ST to follow, re-assess in 24 hours, continue GOC conversation, determine indication for repeat instrumental
assessment of swallowing if indicated, and provide continued diagnostic swallow therapy as appropriate.
RECOMMEND:
1) (1) safest recommendation would be for NPO except for necessary medications crushed in puree, only when awake/alert, with ST to re-assess in 24 hours
2) vs. (2) Should family pursue comfort care/hospice and elect for oral diet while accepting risks for aspiration and related complications, would recommend cautious oral diet of IDDSI Level 4 Puree and Mildly-thick liquids with 1:1 assist, only
when pt awake/alert
3) Aspiration precautions: 1:1 assist; Upright positioning; Small single sips/bites; Slow rate of intake
4) Medications crushed in puree
5) ST to continue to follow, re-assess in 24 hours
[2024-06-27 15:00] VITALS: BP 131/72
--- NOTE | 2024-06-27 16:55 | CM ---
BRIAN spoke with Alka's son regarding hospice services. He was unsure if he wanted his mother to return to [facility] or go to SNF ([facility] or [facility]) with hospice services. After discussion he is leaning toward return to [place], but will discuss with his brothers to make a final decision.
BRIAN to follow to coordinate hospice services at [facility]. [facility] is the agency of choice per Alka's son.
[2024-06-27] MEDS: LOVENOX 40 MG SC (17:28)
[2024-06-27] MEDS: STERILE WATER FOR INJECTION 10 ML IV (20:28)
[2024-06-27] MEDS: ROCEPHIN 1000 MG IV (20:28)
[2024-06-27 23:29] VITALS: BP 162/85
[2024-06-28 08:00] VITALS: BP 171/87
[2024-06-28 08:13] LABS: Hematocrit 37.2 % (37.0-47.0); Hemoglobin 12.6 g/dL (12.0-16.0); Mean Corp Hgb Conc. 33.9 g/dL (33.0-37.0); Mean Corpuscular Hgb 29.9 pg (27.0-31.0); Mean Corpuscular Volume 88.4 fL (81.0-99.0); Mean Platelet Volume 9.9 fL (7.4-10.4); Platelet Count 217 10^3/uL (130-400); Red Blood Cell Count 4.21 10^6/uL (4.20-5.40); Red Cell Dist. Width 13.5 % (11.5-14.5); White Blood Cell Count 9.1 10^3/uL (4.8-10.8)
[2024-06-28] MEDS: KCL 20 MEQ PO (08:48)
[2024-06-28] MEDS: PAXIL 40 MG PO (08:48)
[2024-06-28] MEDS: TAPAZOLE 5 MG PO (08:48)
[2024-06-28] MEDS: NORVASC 2.5 MG PO (08:49)
[2024-06-28 08:52] LABS: Blood Urea Nitrogen 25 mg/dl (7-17); Calcium 9.2 mg/dl (8.4-10.2); Carbon Dioxide 24 mmol/L (22-30); Chloride 105 mmol/L (98-107); Estimated Creatinine Clearance 40 ml/min; Glucose 88 mg/dl (70-99); Magnesium 1.8 mg/dl (1.6-2.3); Potassium 4.1 mmol/L (3.5-5.1); Sodium 141 mmol/L (135-145); eGFR > 60.00
--- NOTE | 2024-06-28 09:09 | PTOTSP ---
ST Follow-Up
Pt presents with clinical signs consistent with suspected moderate oropharyngeal dysphagia as found in previous VFSS in 2022 as well as characterized by prolonged bolus manipulation and bolus propulsion posteriorly as well as overt s/s of
penetration/aspiration with thin liquid consistencies.
Recommendations:
- Initiate a PO diet of PUREED SOLIDS and MODERATELY THICK LIQUIDS with meds crushed in puree.
- Aspiration precautions: Fully awake, alert, and upright for all PO intake; 1:1 assist with all PO intake; small bites/sips; slow intake rate; check for pocketing and make sure pt initiates a swallow.
- SASH CLAMP OPERATOR to f/u re: diet tolerance, re-assessment for candidacy for diet consistency upgrades, and to determine if pt would benefit from an updated instrumental swallow study.
--- NOTE | 2024-06-28 09:29 | W.PN.HOSP.TC ---
Addendum entered and electronically signed by Lelia Álvarez MD 06/28/24 12:32:
total DC time 36 min
Original Note:
Today's Communication/Plan
-
see A/P
Assessment / Plan
Assessment / Plan
HPI: 88-year-old female with past medical history of HTN, dementia; p/w suspected fall at [facility] where staff reported patient was found sitting on floor and when they got her up and she was unable to walk like normal.
Patient AAOx1, not interactive. Patient's son reported that patient was recently discharged from hospice services for not meeting criteria, and he wishes for a hospice consult. He is ok with antibiotics to treat UTI but does not want surgical
intervention for fracture.
A/P:
# Abnormal UA, possible UTI
f/u UCx
IV CFTX for now
# Fall with Left femur fracture
Son declined hip surgery, requesting Hospice eval
Of note: pt was previously on hospice
# Dementia with agitation
cont FIELD OPERATIONS SUPERVISOR Ativan PRN for agitation
c/w Prozac
Trial of pureed diet with mod thickened liquid with supervision
# Essential HTN
continue JOSUÉ/BB
# HLD
statin
DVT px: Lovenox
Code: DNR DNI
Dispo: Hospice eval
Anticipated Discharge: Within 24 hours
Subjective/Interval History
-
Date of Service: June 28, 2024
Objective Data
-
Labs:
Laboratory Results
06/28/24
07:45
WBC 9.1
Hgb 12.6
Hct 37.2
Plt Count 217
Sodium 141
Potassium 4.1
Chloride 105
Carbon Dioxide 24
BUN 25 H
Creatinine 0.7
Glucose 88
Calcium 9.2
Vital Signs:
Vital Signs
Temp Pulse Resp BP Pulse Ox
36.6 C 82 20 171/87 92
06/28/24 08:00 06/28/24 08:00 06/28/24 08:00 06/28/24 08:00 06/28/24 08:00
I&O
06/27/24 06/28/24 06/29/24
06:59 06:59 06:59
Output Total 900 / 900
Balance -900 / -900
Review of Systems
-
Unable to obtain full review of systems at this time due to: Dementia
Physical Exam
-
General: Well Developed, Well Nourished, No Apparent Distress, Comfortable and Conversant; Negative Respiratory Distress
HEENT: Normocephalic, Atraumatic, Nose Appears Normal and Ears Appear Normal; Negative Oxygen
Respiratory: Clear to Auscultation and Non Labored Respirations; Negative Accessory Resp Muscle Use
Cardiac: Regular Rhythm and S1/S2
GI: Soft, Nontender, Nondistended and Normal Bowel Sounds
Skin: Warm and Dry
Neuro: Awake
Psych: Calm and Apparent Dementia; Negative Intact Judgement/Insight
Data Reviewed
-
Labs: Labs Reviewed by me
--- NOTE | 2024-06-28 12:11 | W.DCSUMMARY ---
Discharge Summary
Discharge Data
Date of Admission: 06/26/24
Date of Discharge: 06/28/24
-
Pending Results: No
Hospital Course
Principal Diagnosis:
Fall with Left femur fracture
Urinary tract infection
Chronic Diagnoses:�
Severe dementia
Essential Hypertension
Hyperlipidemia
Consultations:�
None
Procedures:�
None
Clinical course:�
This is a 88-year-old female with past medical history as stated above who was found on the floor by half-way staff.
Problem 1:
Fall with Left femur fracture.
Due to her severe dementia, her son declined hip surgery and requested hospice.
She was discharged back to her nursing to start hospice.
Problem 2:
Urinary tract infection.
Her urine culture was positive for GNR, specie and sensitivity results were not available at the time of discharge.
She received ceftriaxone for 2 days while in the hospital. No further antibiotic would be continued since she would be transition to hospice care at the half-way.
As for the rest of her medical problems, they were stable during her hospital stay.
Discharge Plan
-
Patient Disposition: Home with Hospice
Discharge Diagnosis/Procedures: Urinary tract infection;
Fall with Left femur fracture;
Severe dementia
Condition: Fair
Diet: As tolerated and Other diet
Additional Diets: pureed with moderately thick liquid
Activity: As tolerated
Driving Restrictions: No driving
Other Services: Hospice
Referrals:
Reji Salazar MD [Family Provider] - in less than 1 week
Prescriptions:
Continued
sennosides [senna] 8.6 mg Tablet
17.2 mg PO HS
acetaminophen 325 mg Tablet
650 mg PO Q4HPRN PRN (Reason: moderate pain)
acetaminophen 325 mg Tablet
650 mg PO Q6HPRN PRN (Reason: mild pain)
polyethylene glycol 3350 [Miralax] 17 gram Powder In Packet
17 g PO DAILYPRN PRN (Reason: constipation)
amlodipine 2.5 mg Tablet
2.5 mg PO DAILY
melatonin 3 mg Tablet
3 mg PO HS
magnesium hydroxide [Milk of Magnesia] 400 mg/5 mL Suspension
30 ml PO HSPRN PRN (Reason: if no bm x 3 days)
methimazole 5 mg Tablet
5 mg PO DAILY@0630
nystatin [Nystop] 100,000 unit/gram Powder
1 applic TOPICAL BID@0900,1700
Patient Comments:
apply to bilateral breasts
paroxetine HCl 40 mg Tablet
40 mg PO DAILY
ibandronate 150 mg Tablet
150 mg PO QMONTH
cholecalciferol (vitamin D3) 25 mcg (1,000 unit) Tablet
25 mcg PO DAILY
potassium chloride 20 mEq Tablet Extended Release
20 meq PO DAILY
lorazepam 0.5 mg Tablet
0.5 mg PO BIDPRN PRN (Reason: anxiety) Qty: 5 0RF
Discharge Orders:
Discharge Patient (As Directed); Ordered 06/28/24
Ordered By: Lelia Álvarez
Discharge Date and Time
Print Language: BELGIAN
--- NOTE | 2024-06-28 12:12 | CM ---
Addendum entered by Mis Jaimes 06/28/24 13:11:
Please contact [facility] SAP HANA DEVELOPER Mago with report: [phone]
Hospital bed is to be delivered today between 12 noon and 2PM.
[facility] is asking that records from this hospitalization as well as the most recent ED visit be sent via fax to [phone].
Original Note:
CM advised by Alka's son that they have decided on return to [facility] with [facility] services. Referral sent to [facility] via [facility]. CM spoke with Estrella at [facility] who will arrange for SAP HANA DEVELOPER to see Alka later today, or
possibly not until tomorrow depending on SAP HANA DEVELOPER availability.
Hospital bed is to be delivered to [facility] today.
[facility] is asking that records from this hospitalization as well as the most recent ED visit be sent via fax to [phone]. Once [facility] determines when the SAP HANA DEVELOPER will be starting hospice services, phone number for report will be provided.
CM to follow to coordinate transfer to [facility] with [facility] via ambulance transport once all details are finalized.
[2024-06-28 12:58] VITALS: BP 175/71
--- NOTE | 2024-06-28 14:52 | CM ---
Call placed to Alka's son, Tristen, to update him regarding discharge plans to [facility] with [facility]. He is in agreement with discharge. IMM reviewed verbally via telephone. Copy of IMM offered via email, but was declined.
Plan: Discharge to [facility] today via ambulance. [facility] ADVANCED QUALITY ENGINEER will be at [facility] to open the hospice episode. Pt's family will visit in AM.
Please contact [facility] ADVANCED QUALITY ENGINEER Mago with report: [phone]
Hospital bed has been delivered to [facility] Report: [phone]
[facility] is asking that records from this hospitalization as well as the most recent ED visit be sent via fax to [phone].
[2024-06-28 15:26] VITALS: BP 169/80
[2024-06-28] MEDS: ATIVAN 0.5 MG PO (16:35)
== END 2024-06-28 18:34 | disposition hospice, home (50) | DRG 689 ==
LOC: 4 EAST ACU 18:35
PROVIDERS: Nurse Practitioner Family; Registered Nurse; ADMITTING PHYSICIAN Internal Medicine; ATTENDING PHYSICIAN Internal Medicine; EMERGENCY PHYSICIAN Emergency Medicine; FAMILY PHYSICIAN Family Medicine
DX: N39.0 Urinary tract infection, site not specified (principal); J69.0 Pneumonitis due to inhalation of food and vomit; S72.002A Fracture of unspecified part of neck of left femur, initial encounter for closed fracture; F02.C11 Dementia in other diseases classified elsewhere, severe, with agitation; G30.9 Alzheimer's disease, unspecified; I10 Essential (primary) hypertension; Z66 Do not resuscitate; Z51.5 Encounter for palliative care; B96.89 Other specified bacterial agents as the cause of diseases classified elsewhere; W19.XXXA Unspecified fall, initial encounter; Y92.129 Unspecified place in nursing home as the place of occurrence of the external cause; R29.6 Repeated falls; R13.10 Dysphagia, unspecified; R09.02 Hypoxemia; R06.89 Other abnormalities of breathing; E78.00 Pure hypercholesterolemia, unspecified
CPT/HCPCS: 73502; 80048; 80053; 81003; 81015; 83735; 85025; 85027; 86803; 87070; 87077; 87086; 87186; 87340; 87389; 92526; 92610; 96374; 99285